=== PATIENT | male | born 1980 | race African-American/Black ===

== ENCOUNTER 2019-04-23 13:27 | Emergency (ER) | payer OTHER ==
[~2019-04-23] VITALS: Ht 177.8 cm; Wt 90.5 kg
[2019-04-23 13:30] VITALS: TEMP 97.5
[2019-04-23] MEDS ORDERED: LOFIBRA134 MG PO (13:32)
[2019-04-23] MEDS ORDERED: PRINIVIL40 MG PO (13:32)
[2019-04-23] MEDS ORDERED: FISH OIL 1000MG1 CAP PO (13:33)
[2019-04-23 14:09] LABS: BASO % 0.2 % (0.0-2.0); EOS % 0.1 % (0-4.0); GRAN # 16.1 (1.4-6.5); GRAN % 87.1 % (42.2-75.2); HEMATOCRIT 44.6 % (42.0-52.0); HEMOGLOBIN 15.6 g/dl (13.5-18.0); LYMPH # 1.3 (1.2-3.4); LYMPH % 7.2 % (20.0-51.0); MEAN CELL VOLUME 79 fl (80.0-100.0); MEAN CORPUSCULAR HEMOGLOBIN 28 pg (27.0-31.0); MEAN CORPUSCULAR HGB CONC 35 g/dl (33.0-37.0); MEAN PLATELET VOLUME 10.7 fl (7.4-10.4); MONO # 0.9 (0.1-0.6); MONO % 4.9 % (1.7-9.3); PLATELET COUNT 208 K/mm3 (130-400); RED BLOOD COUNT 5.64 M/mm3 (4.20-5.60)
[2019-04-23 14:23] LABS: ALANINE AMINOTRANSFERASE 44 U/L (21-72); ALBUMIN 5.2 gm/dL (3.5-5.0); ALKALINE PHOSPHATASE 59 U/L (50-136); ANION GAP 14 mmol/L (7-16); AST,SGOT 37 U/L (15-37); BILIRUBIN,TOTAL 1.4 mg/dL (0.0-1.0); BLOOD UREA NITROGEN 16 mg/dL (9-20); CALCIUM 10.2 mg/dL (8.4-10.2); CARBON DIOXIDE 23 mmol/L (22-30); CHLORIDE 106 mmol/L (98-107); CREATININE, serum 1.29 (0.66-1.25); GLUCOSE 105 mg/dL (74-106); LIPASE 63 U/L (23-300); POTASSIUM 4.4 mmol/L (3.4-5.0); SODIUM 142 mmol/L (137-145); TOTAL PROTEIN 8.6 gm/dL (6.4-8.2)
[2019-04-23 14:26] LABS: C-REACTIVE PROTEIN < 0.5 mg/dL (0.0-0.9)
[2019-04-23 15:34] LABS: COLLECTION METHOD CLEAN CATCH
[2019-04-23 15:49] LABS: MUCOUS Present /lpf; PH 6 (5-8); SQUAMOUS EPITHELIAL None Seen /hpf; URINE APPEARANCE Clear; URINE BACTERIA None Seen /hpf; URINE BILIRUBIN Negative (NEGATIVE); URINE BLOOD Negative (NEGATIVE); URINE COLOR Straw; URINE GLUCOSE Negative (NEGATIVE); URINE KETONE Negative (NEGATIVE); URINE LEUKOCYTE ESTERASE Negative (NEGATIVE); URINE NITRATE Negative (NEGATIVE); URINE PROTEIN(semi-quant) Negative (NEGATIVE); URINE RBC 0-2 /hpf; URINE UROBILINOGEN Negative (NEGATIVE)
[2019-04-23] MEDS ORDERED: NORCO 325 MG-51 TAB PO (16:19)
[2019-04-23 16:29] VITALS: BP 115/81; PULSE 70
== END 2019-04-23 16:30 | disposition home or self-care (01) ==
LOC: COL.ER 13:27
PROVIDERS: Nurse Practitioner
DX: R10.12 Left upper quadrant pain (principal); I10 Essential (primary) hypertension
CPT/HCPCS: J1170; J2405; J7030; Q9967

== ENCOUNTER 2020-04-07 21:19 | Observation (INO) | payer OTHER ==
[~2020-04-07] VITALS: Wt 94.8 kg
[~2020-04-07 21:19] MED LIST: FISH OIL 1000MG1 CAP PO; LOFIBRA134 MG PO; NORCO 325 MG-51 TAB PO; PRINIVIL40 MG PO
[2020-04-07 22:17] LABS: BASO % 0.2 % (0.0-2.0); EOS % 0.1 % (0-4.0); GRAN # 15.7 (1.4-6.5); GRAN % 87.1 % (42.2-75.2); HEMATOCRIT 47.1 % (42.0-52.0); HEMOGLOBIN 16.1 g/dl (13.5-18.0); LYMPH # 1.4 (1.2-3.4); LYMPH % 7.5 % (20.0-51.0); MEAN CELL VOLUME 82 fl (80.0-100.0); MEAN CORPUSCULAR HEMOGLOBIN 28 pg (27.0-31.0); MEAN CORPUSCULAR HGB CONC 34 g/dl (33.0-37.0); MEAN PLATELET VOLUME 10.8 fl (7.4-10.4); MONO # 0.8 (0.1-0.6); MONO % 4.5 % (1.7-9.3); PLATELET COUNT 209 K/mm3 (130-400); RED BLOOD COUNT 5.77 M/mm3 (4.20-5.60); REDCELL DISTRIBUTION WIDTH-CV 13.9 % (11.5-14.5)
[2020-04-07 22:28] LABS: ALANINE AMINOTRANSFERASE 85 U/L (4-49); ALBUMIN 5.3 gm/dL (3.5-5.0); ALKALINE PHOSPHATASE 60 U/L (50-136); ANION GAP 14 mmol/L (7-16); AST,SGOT 55 U/L (15-37); BILIRUBIN,TOTAL 1.3 mg/dL (0.0-1.0); BLOOD UREA NITROGEN 13 mg/dL (9-20); CALCIUM 10.2 mg/dL (8.4-10.2); CARBON DIOXIDE 25 mmol/L (22-30); CHLORIDE 100 mmol/L (98-107); CREATININE, serum 1.08 (0.66-1.25); GLUCOSE 133 mg/dL (74-106); LIPASE 276 U/L (23-300); POTASSIUM 4.3 mmol/L (3.4-5.0); SODIUM 139 mmol/L (137-145); TOTAL PROTEIN 8.8 gm/dL (6.4-8.2)
[2020-04-07 22:30] LABS: C-REACTIVE PROTEIN < 0.5 mg/dL (0.0-0.9)
[2020-04-08] VITALS (12 sets, daily range): BP systolic 101–157; BP diastolic 54–74; PULSE 61–85; TEMP 97.6–99
[2020-04-08] LABS: COLLECTION METHOD CLEAN CATCH
[2020-04-08 00:06] LABS: MUCOUS Present /lpf; PH 6 (5-8); SQUAMOUS EPITHELIAL None Seen /hpf; URINE APPEARANCE Clear; URINE BACTERIA None Seen /hpf; URINE BILIRUBIN Negative (NEGATIVE); URINE BLOOD 1+ (NEGATIVE); URINE COLOR Straw; URINE GLUCOSE Negative (NEGATIVE); URINE KETONE Negative (NEGATIVE); URINE LEUKOCYTE ESTERASE Negative (NEGATIVE); URINE NITRATE Negative (NEGATIVE); URINE PROTEIN(semi-quant) Negative (NEGATIVE); URINE RBC 0-2 /hpf; URINE UROBILINOGEN Negative (NEGATIVE)
--- NOTE | 2020-04-08 01:25 | NUR ---
PT ADMITTED TO ROOM 342 PER W/C FROM ED. AT SIDE. ORIENTED TO ROOM AND PLAN OF CARE. PT C/O NAUSEA. DENIES NEED FOR PAIN MEDICATION. NS STARTED PER PUMP AT 125CC/HR TO LT AC. ZOFRAN 4MG IV GIVEN. SEE DEC. 5 PAGE ASSESSMENT COMPLETED. REMAINS NPO FOR POSSIBLE SURGERY. CALL LIGHT IN REACH. PT DENIES NEEDS AT THIS TIME READY FOR SLEEP.
--- NOTE | 2020-04-08 01:30 | NUR ---
PT ADMITTED FROM ER PER W/C. ADMITS TO NAUSEA. DENIES NEED FOR PAIN MED AT THIS TIME. NS STARTED AT 125CC/HR TO LT AC. SITE CLEAR. ZOFRAN GIVEN. PT REORIENTED TO ROOM AND CURRENT PLAN OF CARE. NO FURTHER QUESTIONS. PT READY FRO SOME SLEEP. CALL LIGHT IN REACH. NPO.
[2020-04-08] MEDS ORDERED: CRESTOR 10MG10 MG PO (01:54)
--- NOTE | 2020-04-08 04:36 | NUR ---
PT CONTINUES TO REST. NO DISTRESS.
--- NOTE | 2020-04-08 06:19 | NUR ---
PT SLEEPING. NO DISTRESS. REMAINS NPO.
--- NOTE | 2020-04-08 08:13 | NUR ---
PATIENT RESTING IN BED THIS MORNING. PATIENT IS A&OX4. VSS. BOWEL SOUNDS ACTIVE ALL FOUR QUADRANTS. PATIENT IS NPO FOR POSSIBLE PROCEDURE. PATIENT DENIES ANY COMPLAINTS OF N/V OR PAIN AT THIS TIME. IV FLUIDS INFUSING TO LEFT AC IV VIA PUMP. CALL LIGHT WITHIN REACH. PATIENT DENIES ANY NEEDS AT THIS TIME.
--- NOTE | 2020-04-08 10:05 | NUR ---
PATIENT CONSENT FORM SIGNED AND ON PATIENT CHART. LR HUNG TO GRAVITY FLOW TUBING AND INFUSING TO LEFT AC IV. PRE-OP MEDICATIONS GIVEN. PATIENT TAKEN TO PERIOP VIA BED BY JOYCELYN ILM. WILL WAIT FOR PATIENT ARRIVAL BACK TO ROOM 342 POST-OP.
--- NOTE | 2020-04-08 12:40 | NUR ---
PATIENT ARRIVED BACK TO ROOM 342 VIA BED FROM PACU. PATIENT IS DROWSY BUT ALERT. POST-OP VSS. ABDOMINAL LAP SITES X5 DRESSED WITH BANDAIDS AND ARE CD&I. SCD'S TO BLE. PATIENT DENIES PAIN OR DISCOMFORT AT THIS TIME. PATIENT TOLERATING CLEAR LIQUIDS. CALL LIGHT WITHIN REACH. PRESENT AT THE BEDSIDE. NO FURTHER NEEDS AT THIS TIME.
--- NOTE | 2020-04-08 16:15 | NUR ---
Plan: To return home with [place] . Assessment: Patient reports that he and his reside locally . Patient denies having any DME use. Patient reprots that his PCP is Dr. Perez and they obtain medications from [facility]. No concerns with transportation. Denies have a DPOA. Patient denies having any care concerns. Action: Educated on resources in community. No other concerns identified.
--- NOTE | 2020-04-08 16:37 | NUR ---
PATIENT TOLERATING A REGULAR DIET. POST-OP VSS AND COMPLETE. PATIENT VOIDING SUFFICIENTLY POST-OP. PATIENT UP AND AMBULATING WITH . PATIENT RATING HIS PAIN A 1/10 IN THE ABDOMEN AND DESCRIBES IT TENDERNESS. PATIENT DENIES ANY NEEDS AT THIS TIME.
--- NOTE | 2020-04-08 17:32 | NUR ---
IV FLUIDS TO INT. PATIENT AMBULATING IN HALLWAYS WITH . PATIENT BELCHING. PATIENT DENIES PASSING ANY GAS. NO NEEDS AT THIS TIME.
--- NOTE | 2020-04-08 19:08 | NUR ---
REPORT GIVEN TO JOYCELYN BROCK.
--- NOTE | 2020-04-08 20:00 | NUR ---
Assessment complete. Resting in bed. Visitor at bedside. Up Ad Bettina. Denies pain/ discomfort at this time.
[2020-04-09 00:25] VITALS: BP 95/45; PULSE 66; TEMP 98
[2020-04-09 03:45] VITALS: BP 101/55; PULSE 64; TEMP 98.1
[2020-04-09 06:57] VITALS: BP 111/64; PULSE 62; TEMP 98.6
--- NOTE | 2020-04-09 08:00 | NUR ---
Patient in bed resting. Alert and oriented x 3. Assessment complete. Denies pain at this time. Lap sites x5 with bandaids are CDI. States one site was leaking overnight but has stopped. INT to right AC without complications. Denies further needs at this time. Patient independent in room.
[2020-04-09 08:03] LABS: BASO % 0.1 % (0.0-2.0); EOS # 0.1 (0.0-0.7); EOS % 0.4 % (0-4.0); GRAN % 77.4 % (42.2-75.2); LYMPH # 2.1 (1.2-3.4); LYMPH % 14.4 % (20.0-51.0); MEAN CELL VOLUME 83 fl (80.0-100.0); MEAN CORPUSCULAR HEMOGLOBIN 28 pg (27.0-31.0); MEAN CORPUSCULAR HGB CONC 34 g/dl (33.0-37.0); MEAN PLATELET VOLUME 11.2 fl (7.4-10.4); MONO % 7.2 % (1.7-9.3); PLATELET COUNT 179 K/mm3 (130-400); RED BLOOD COUNT 4.96 M/mm3 (4.20-5.60); REDCELL DISTRIBUTION WIDTH-CV 13.6 % (11.5-14.5)
[2020-04-09 08:06] LABS: HEMOGLOBIN 13.9 g/dl (13.5-18.0)
[2020-04-09 08:13] LABS: ALBUMIN 4.2 gm/dL (3.5-5.0); BILIRUBIN,TOTAL 1.2 mg/dL (0.0-1.0); CALCIUM 9.3 mg/dL (8.4-10.2); CREATININE, serum 1.21 (0.66-1.25); POTASSIUM 3.8 mmol/L (3.4-5.0); TOTAL PROTEIN 7.3 gm/dL (6.4-8.2)
[2020-04-09] MEDS ORDERED: AMOXICILLIN 8751 TAB PO (08:34)
[2020-04-09] MEDS ORDERED: NORCO 325 MG-51 TAB PO (08:34)
--- NOTE | 2020-04-09 09:50 | NUR ---
Discharge education provided to patient. Educated on signs and symptoms of infection and when to call provider. Educated on new medications and medication safety. Patient and spouse educated on follow up appointment and maintaining a low fat diet. Spouse at bedside. All questions answered.INT discontinued, catheter tip intact. Denies further needs at this time. Patient ambulated out with surgical staff and spouse.
== END 2020-04-09 09:50 | disposition home or self-care (01) ==
LOC: COL.ER 21:19 → SURG 23:30
PROVIDERS: Emergency Medicine; ADMIT Surgery
DX: K80.00 Calculus of gallbladder with acute cholecystitis without obstruction (principal); K82.1 Hydrops of gallbladder; I10 Essential (primary) hypertension; E78.5 Hyperlipidemia, unspecified; K76.0 Fatty (change of) liver, not elsewhere classified
CPT/HCPCS: A9284; G0378; J1100; J1885; J2405; J2543; J2704; J3010; J7030; Q9967

== ENCOUNTER → 2021-03-29 | Outpatient (CLI) | payer OTHER ==
[~2021-03-29] MED LIST changes: +AMOXICILLIN 8751 TAB PO; +CRESTOR 10MG10 MG PO
== END ==
LOC: COL.RAD 09:30
DX: K76.0 Fatty (change of) liver, not elsewhere classified (principal); Z90.49 Acquired absence of other specified parts of digestive tract